=== PATIENT | female | born 1955 | race Hispanic/Latino ===

== ENCOUNTER 2020-05-24 17:43 | Emergency (ER) | payer SELFPAY ==
[2020-05-24 18:08] VITALS: BP 154/79; PULSE 81; RESP 16; TEMP 36.4; O2SAT 99
--- NOTE | 2020-05-24 18:26 | ED.NECK ---
HPI - Neck Pain/Injury General Chief Complaint: Neck Pain/Injury Stated Complaint: Neck pain Time Seen by Provider: 05/24/20 18:18 Source: patient and RN notes reviewed Mode of arrival: ambulatory Limitations: no limitations History of Present Illness HPI Narrative: Patient presents today complaining of right neck pain that is severe when she turns her head to the right. Denies injury. Pain was present when she woke up yesterday morning. She rates her pain 5/10 at rest, which increases to 10/10 with movement. She has been taking Advil with some mild relief. History of right-sided deficits from stroke. States that sometimes she falls asleep in her chair with her neck turned in an uncomfortable way, then subsequently has neck pain. Her doctors have told her to take Tylenol or ibuprofen for this pain, but the pain she is currently experiencing is a little more severe. Denies numbness or tingling in the extremities. Denies any additional symptoms. MD complaint: neck pain Related Data Home Medications Medication Instructions Recorded Confirmed amlodipine 05/24/20 aspirin 81 mg PO DAILY 05/24/20 05/24/20 fluoxetine 05/24/20 hydrochlorothiazide 05/24/20 metoprolol tartrate 05/24/20 Allergies Allergy/AdvReac Type Severity Reaction Status Date / Time No Known Allergies Allergy Verified 05/24/20 18:17 Review of Systems Review of Systems: Narrative: CONSTITUTIONAL: Denies body aches, fever, chills, or sweats. EYES: Denies visual changes, redness, or discharge. ENT: Denies rhinorrhea, congestion, sore throat, or otalgia. CARDIOVASCULAR: Denies chest pain, palpitations, or edema. RESPIRATORY: Denies cough or dyspnea. GASTROINTESTINAL: Denies abdominal pain, nausea, vomiting, or diarrhea. GENITOURINARY: Denies dysuria or hematuria. SKIN: Denies rash, itching, or wounds. MUSCULOSKELETAL: Denies back pain, joint pain, or myalgia.+ Neck pain NEUROLOGIC: Denies headache, numbness, tingling, or weakness. PSYCH: Denies depression or anxiety. [facility] Past Medical History Medical History (Updated 05/24/20 @ 18:33 by Shaina Harris, [employer], ) History of CVA (cerebrovascular accident) Hypertension Social History Social History Gender identity (if verbalized by the patient): Female Comments At time of signature, I have reviewed and agree with nursing past medical, surgical, social and family history unless otherwise noted. Please see nursing chart for further information. There is no relevant family history pertinent to the presenting complaint Exam Narrative: Exam Narrative: GENERAL: Well-appearing, well-nourished. HEAD: Normocephalic, atraumatic. EYES: EOMI. No redness or drainage. Conjunctivae normal. ENT: Mucous membranes pink and moist. Nares clear. No rhinorrhea. NECK: Supple. No lymphadenopathy. Tenderness to the right cervical paraspinal muscles. No bony tenderness of the neck. Full AROM of the shoulder. Pain increases in right neck with AROM, most severely with a right gaze. Handgrips equal and strong. Distal sensation intact. Capillary refill normal. Radial pulses normal. CHEST: No respiratory distress. EXTREMITIES: Normal range of motion. No edema. SKIN: Warm, dry, no rash. Capillary refill normal. Normal skin turgor. NEURO: No focal deficits. Alert and oriented x3. Gait steady. PSYCH: Normal affect. No signs of depression or anxiety. Course Vital Signs Vital signs: Vital Signs Temperature 97.6 F 05/24/20 18:08 Pulse Rate 81 05/24/20 18:08 Respiratory Rate 16 05/24/20 18:08 Blood Pressure 154/79 H 05/24/20 18:08 Pulse Oximetry 99 05/24/20 18:08 Temperature 97.6 F 05/24/20 18:08 Pulse Rate 81 05/24/20 18:08 Respiratory Rate 16 05/24/20 18:08 Blood Pressure 154/79 H 05/24/20 18:08 Pulse Oximetry 99 05/24/20 18:08 Reviewed. Pt has been instructed to follow up with her PCP regarding her elevated blood pressure today. Critical Care Time Crit
== END 2020-05-24 18:32 | disposition home or self-care (01) ==
PROVIDERS: Emergency Provider Nurse Practitioner
DX: S16.1XXA Strain of muscle, fascia and tendon at neck level, initial encounter (principal); X58.XXXA Exposure to other specified factors, initial encounter; I10 Essential (primary) hypertension; Z86.73 Personal history of transient ischemic attack (TIA), and cerebral infarction without residual deficits
CPT/HCPCS: 99203; G0463